=== PATIENT | male | born 1960 | race African-American/Black ===

== ENCOUNTER 2019-03-22 08:40 | Outpatient (CLI) | payer OTHER ==
--- NOTE | 2019-03-22 10:22 | Ultrasound Report ---
LIMITED RUQ ABDOMINAL ULTRASOUND INDICATION: B18.1)Chronic viral hepatitis B without delta-agent. Patient was not n.p.o. COMPARISON: No relevant prior imaging study available. FINDINGS: Pancreas: Visualized portions show no significant abnormality. Abdominal Aorta: No significant abnormality. IVC: No significant abnormality. Liver: The liver measures 15.1 cm in length. No significant abnormality. No cirrhotic changes or foc al liver mass is identified.. Normal hepatopedal blood flow in the main portal vein. Gallbladder: The gallbladder is normal size, contour and wall thickness. 3 small polyps measuring up to 4 mm are identified in the proximal gallbladder. No cholelithiasis.. Bile ducts: No significant abnormality. Common bile duct measures 6 mm. Right kidney: No significant abnormality visualized.. Free fluid: None. Additional Findings: None. IMPRESSION: Unremarkable sonographic appearance of the liver. Small gallbladder polyps. Signer Name: Nicholas Martinez Jr, MD Signed: 03/22/2019 10:18 AM Workstation Name: [id number]
== END 2019-03-22 08:41 | disposition home or self-care (01) ==
LOC: US 08:40
PROVIDERS: ATTEND Family Medicine
DX: B18.1 Chronic viral hepatitis B without delta-agent (principal); K83.1 Obstruction of bile duct; E11.65 Type 2 diabetes mellitus with hyperglycemia
CPT/HCPCS: 76705

== ENCOUNTER 2020-08-13 08:52 | Emergency (ER) | payer OTHER, BC ==
[2020-08-13 09:16] VITALS: BP 167/88
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
== END 2020-08-13 10:52 | disposition home or self-care (01) ==
LOC: ED 08:52
DX: S20.219A Contusion of unspecified front wall of thorax, initial encounter (principal); E11.9 Type 2 diabetes mellitus without complications; Z79.899 Other long term (current) drug therapy; V49.49XA Driver injured in collision with other motor vehicles in traffic accident, initial encounter; Y92.410 Unspecified street and highway as the place of occurrence of the external cause; Y93.89 Activity, other specified; Y99.8 Other external cause status
CPT/HCPCS: 71046; 82962